=== PATIENT | female | born 1960 | race African-American/Black ===

== ENCOUNTER 2020-06-17 07:15 | Emergency (ER) | payer BC ==
[~2020-06-17] VITALS: Ht 162.6 cm; Wt 98.9 kg
[2020-06-17 07:17] VITALS: BP 140/101
[2020-06-17] MEDS ORDERED: cefTRIAXone SOD 1,000 MG VL IM ONE (08:00)
== END 2020-06-17 08:55 | disposition home or self-care (01) ==
LOC: ER 07:15
DX: L03.115 Cellulitis of right lower limb (principal); I10 Essential (primary) hypertension; F17.210 Nicotine dependence, cigarettes, uncomplicated
CPT/HCPCS: 96372; 99283; J0696